=== PATIENT | male | born 1935 | race Caucasian/White ===

== ENCOUNTER 2021-10-15 12:23 | Emergency (ER) | payer MEDICARE ==
[2021-10-15 13:26] VITALS: BP 127/76; PULSE 62; TEMP 98.1
[2021-10-15 13:31] VITALS: RESP 20
--- NOTE | 2021-10-15 13:49 | ED ---
General Adult HPI - General Chief complaint: Recheck/Abnormal Lab/Rx Stated complaint: Covid+, antibodies Time Seen by Provider: 10/15/21 13:30 Source: patient, family Mode of arrival: ambulatory Limitations: no limitations - History of Present Illness Initial comments: Dictation was produced using [employer] dictation software. please excuse any gramm atical, word or spelling errors. Chief Complaint: 86-year-old male presents emergency department for cough body aches History of Present Illness: 86-year-old male was exposed to COVID-19 on Friday. 3 days later he began having symptoms of body aches, nonproductive cough and mild dyspnea. Patient decided come to the emergency department for Covid testing. Patient states his symptoms are significantly improved since Friday. The ROS documented in this emergency department record has been reviewed and confirmed by me. Those systems with pertinent positive or negative responses have been documented in the HPI. All other systems are other negative and/or noncontributory. PHYSICAL EXAM: General Impression: Alert and oriented x3, not in acute distress HEENT: Normocephalic atraumatic, extra-ocular movements intact, pupils equal and reactive to light bilaterally, mucous membranes moist. Cardiovascular: Heart regular rate and rhythm Chest: Able to complete full sentences, no retractions, no tachypnea, clear to auscultation bilaterally Abdomen: abdomen soft, non-tender, non-distended, no organomegaly Musculoskeletal: Pulses present and equal in all extremities, no peripheral edema Motor: no focal deficits noted Neurological: CN II-XII grossly intact, no focal motor or sensory deficits noted Skin: Intact with no visualized rashes Psych: Normal affect and mood ED course: 86-year-old male presents to the emergency department for symptoms of COVID-19. He is exposed to Covid approximately 8 days ago. He's been symptomatic for 5-6 days. Vital signs upon arrival shows oxygen saturation 92%, so vital signs within acceptable limits. COVID-19 test is positive. Patient meets criteria for monoclonal antibody infusion.Ambulatory pulse ox is normal. Patient ordered for monoclonal antibody infusion. X-ray shows left lower lobe infiltrate suspicious for pneumonia. Patient is or the emergency department after monoclonal antibody infusion. He tolerated the infusion well. Patient discharged. patient prescription for Z- Rinku. - Related Data Previous Rx's Medication Instructions Recorded Azithromycin [Zithromax Z-pack] 0 mg PO DIRECTED #6 tab 10/15/21 Allergies Allergy/AdvReac Type Severity Reaction Status Date / Time No Known Allergies Allergy Verified 10/15/21 13:22 Review of Systems ROS Statement: Those systems with pertinent positive or pertinent negative responses have been documented in the HPI. ROS Other: All systems not noted in ROS Statement are negative. Past Medical History Past Medical History: COPD, Hypertension History of Any Multi-Drug Resistant Organisms: None Reported Past Surgical History: Appendectomy, Hernia Repair Past Psychological History: No Psychological Hx Reported Smoking Status: Never smoker Past Alcohol Use History: None Reported Past Drug Use History: None Reported General Exam Limitations: no limitations Course Vital Signs 10/15/21 10/15/21 13:23 13:30 Temperature 98.1 F Pulse Rate 62 Respiratory 18 20 Rate Blood Pressure 127/76 O2 Sat by Pulse 92 L Oximetry Medical Decision Making - Lab Data Lab Results 10/15/21 Range/Units 13:27 Coronavirus (PCR) Detected A (Not Detectd) Disposition Clinical Impression: COVID-19 Disposition: HOME SELF-CARE Condition: Fair Instructions (If sedation given, give patient instructions): Coronavirus Disease 2019 (COVID-19) Prescriptions: Azithromycin [Zithromax Z-pack] 0 mg PO DIRECTED #6 tab Is patient prescribed a controlled substance at d/c from ED?: No Referrals: None,Stated [REFERRING] - 1-2 days
--- NOTE | 2021-10-15 13:59 | XR ---
EXAMINATION TYPE: XR chest 2V DATE OF EXAM: 10/15/2021 COMPARISON: NONE TECHNIQUE: PA and lateral views submitted. HISTORY: Cough FINDINGS: Hyperinflation with atherosclerotic change aorta and arthropathy shoulders. Left lower lobe infiltrat e and tiny effusion. Hypertrophic and degenerative changes of the spine. No overt failure. IMPRESSION: 1. COPD with left lower lobe infiltrate correlate for pneumonia.
[2021-10-15] MEDS ORDERED: BEBTELOVIMAB (EUA) 175 MG/2 ML VIAL IV ONE (14:00)
== END 2021-10-15 16:02 | disposition home or self-care (01) ==
LOC: EC 12:23
DX: U07.1 COVID-19 (principal); J44.9 Chronic obstructive pulmonary disease, unspecified; I10 Essential (primary) hypertension
CPT/HCPCS: 87635; 71046; 99284; Q0222